=== PATIENT | male | born 1970 | race Two or more races ===

== ENCOUNTER 2021-08-26 09:49 | Emergency (ER) | payer OTHER ==
[2021-08-26 09:54] VITALS: TEMP 98.3; BMI 34.9
[2021-08-26] MEDS ORDERED: morphine CARPU-JECT 4 MG/1 ML DISP.SYRIN IVPUSH ONE (11:28)
[2021-08-26] MEDS ORDERED: SODIUM CHLORIDE 1,000 ML IV STA (11:28)
[2021-08-26] MEDS ORDERED: ONDANSETRON 4 MG/2 ML VIAL IVPUSH ONE (11:28)
[2021-08-26] MEDS ORDERED: ONDANSETRON 4 MG/2 ML VIAL ONE (11:53)
[2021-08-26] MEDS ORDERED: morphine SULFATE 4 MG/ML VIAL ONE (11:53)
[2021-08-26 12:01] LABS: BASO % 0.4 % (0-2.0); EOS % 1.6 % (0-4.5); HEMATOCRIT 46.4 % (35.4-49); LYMPH % 13.2 % (8-40); MCH 31.2 pg (25.7-33.7); MCHC 34.4 g/dl (32.0-35.9); MEAN CELL VOLUME 90.5 fl (80-96); MEAN PLT VOLUME 8.2 fl (7.5-11.1); MONO % 4.5 % (3.8-10.2); NEUT % 80.3 % (42.8-82.8); PLATELET COUNT 243 10^3/uL (134-434); RBC 5.12 M/mm3 (4.00-5.60); RDW 13.8 % (11.9-15.9); WHITE BLOOD COUNT 10.2 K/mm3 (4.0-10.0)
[2021-08-26 12:29] LABS: ALBUMIN 4.7 g/dl (3.4-5.0); CALCIUM 9.9 mg/dL (8.5-10.1)
[2021-08-26 12:30] LABS: BLOOD UREA NITROGEN 16.3 mg/dL (7-18)
[2021-08-26 12:32] LABS: CREATININE 0.9 mg/dL (0.55-1.3)
[2021-08-26 12:34] LABS: BILIRUBIN,TOTAL 0.8 mg/dL (0.2-1); TOT PROT 8.4 g/dl (6.4-8.2)
[2021-08-26 16:02] VITALS: BP 130/90; PULSE 87
== END 2021-08-26 16:19 | disposition home or self-care (01) ==
LOC: JER 09:49
PROC: 3E033NZ Introduction of Analgesics, Hypnotics, Sedatives into Peripheral Vein, Percutaneous Approach (ICD-10-PCS; principal; 2021-08-26)
PROC: 3E033GC Introduction of Other Therapeutic Substance into Peripheral Vein, Percutaneous Approach (ICD-10-PCS; 2021-08-26)
PROC: 3E0337Z Introduction of Electrolytic and Water Balance Substance into Peripheral Vein, Percutaneous Approach (ICD-10-PCS; 2021-08-26)
DX: K52.9 Noninfective gastroenteritis and colitis, unspecified (principal); K42.9 Umbilical hernia without obstruction or gangrene
CPT/HCPCS: 36415; 74177-TC; 80053; 82962; 83690; 85025; 99285-25; C9803-CS; Q9967; U0003; U0005

== ENCOUNTER 2022-05-18 22:47 | Emergency (ER) | payer OTHER ==
[2022-05-18 22:52] VITALS: BP 153/100; PULSE 70; RESP 18; TEMP 98.3; BMI 35.7
== END 2022-05-19 00:44 | disposition home or self-care (01) ==
LOC: JER 22:47
DX: E11.40 Type 2 diabetes mellitus with diabetic neuropathy, unspecified (principal); M79.671 Pain in right foot; M79.672 Pain in left foot
CPT/HCPCS: 99283-25